=== PATIENT | female | born 1960 | race African-American/Black ===

== ENCOUNTER 2016-11-10 12:51 | Inpatient (IN) | payer OTHER ==
[2016-11-10 14:44] VITALS: BMI 27.6
--- NOTE | 2016-11-10 16:27 | HP ---
CIWA Score - CIWA Score Nausea/Vomitin Muscle Tremors: 3 Anxiety: 3 Agitation: 3 Paroxysmal Sweats: 2 Orientation: 0-Oriented Tacttile Disturbances: 2-Mild Itch/Numbness/Burn Auditory Disturbances: 2-Mild Harshness/Frighten Visual Disturbances: 2-Mild Sensitivity Headache: 2-Mild CIWA-Ar Total Score: 22 Admission ROS BHS - HPI Chief Complaint: I NEED HELP TO STOP DRINKING ALCOHOL,COCAINE CRACK Allergies/Adverse Reactions: Allergies Allergy/AdvReac Type Severity Reaction Status Date / Time No Known Allergies Allergy Verified 03/21/16 10:48 History of Present Illness: THIS 56 YEARS OLD FEMALE WITH ALCOHOL,CRACK AND COCAINE DEPENDENCE,WITHDRAWAL SYMPTOM,LAST DETOX [facility] 12/25 COMPLETED NICOTINE DEPENDENCE DEPRESSION INSOMNIA LONGEST PERIOD OF SOBRIETY 4 YEARS Exam Limitations: No Limitations - Ebola screening Have you traveled outside of the country in the last 21 days: No (N) Have you had contact with anyone from an Ebola affected area: No Have you been sick,other than usual withdrawal symptoms: No Do you have a fever: No - Review of Systems Constitutional: Chills, Loss of Appetite, Malaise, Night Sweats, Changes in sleep, Weakness EENT: reports: Nose Congestion Respiratory: reports: No Symptoms reported GI: reports: Diarrhea, Nausea, Vomiting, Abdominal cramping Musculoskeletal: reports: No Symptoms Reported Integumentary: reports: Dryness Neuro: reports: Headache, Tremors Endocrine: reports: No Symptoms Reported Hematology: reports: No Symptoms Reported Psychiatric: reports: Depressed Other Systems: Reviewed and Negative Patient History - Patient Medical History Hx Anemia: Yes Hx Asthma: No Hx Chronic Obstructive Pulmonary Disease (COPD): No Hx Cancer: Yes (breast ) Hx Cardiac Disorders: No Hx Congestive Heart Failure: No Hx Hypertension: No Hx Hypercholesterolemia: No Hx Pacemaker: No HX Cerebrovascular Accident: No Hx Seizures: Yes (Can't recall last episode said its a long time ago) Hx Dementia: No Hx Diabetes: No Hx Gastrointestinal Disorders: No Hx Liver Disease: No Hx Genitourinary Disorders: No Hx Sexually Transmitted Disorders: No Hx Renal Disease (ESRD): No Hx Thyroid Disease: No Hx Human Immunodeficiency Virus (HIV): No (LAST 2014 NEGATIVE) Hx Hepatitis C: No Hx Depression: Yes (NO MEDICATION) Hx Suicide Attempt: No Hx Bipolar Disorder: No Hx Schizophrenia: No Other Medical History: NO SUICIDAL,NO HOMICIDAL,BILATERAL MASTECTOMY IN 2013 POST CHEMO AND RADI - Patient Surgical History Past Surgical History: Yes Hx Breast Surgery: Yes (bilateral mastectomy in 2013 chemo/radiation) Hx Breast Biopsy: Yes (2012) Hx Abdominal Surgery: No Hx Appendectomy: No Hx Cholecystectomy: No Hx Genitourinary Surgery: No Hx Section: No Hx Orthopedic Surgery: No Other Surgical History: 2006-s/p tubal ligation Anesthesia Reaction: No - PPD History Previous Implant?: Yes Documented Results: Negative w/proof Date: 03/23/16 Results: 0mm PPD to be Administered?: No - Reproductive History Patient is a Female of Child Bearing Age (11 -55 yrs old): No Last Menstrual Period: 02/24/12 Patient : No - Smoking Cessation Smoking history: Current some day smoker Have you smoked in the past 12 months: Yes Aproximately how many cigarettes per day: 5 Hx Chewing Tobacco Use: No Initiated information on smoking cessation: Yes 'Breaking Loose' booklet given: 11/10/16 - Substance & Tx. History Hx Alcohol Use: Yes Hx Substance Use: Yes Substance Use Type: Alcohol, Cocaine Hx Substance Use Treatment: Yes ([facility]) - Substances Abused Alcohol Route: Oral Frequency: Daily Amount used: 1PINT OF BARAK/2 OF 40 OZS OF BEER Age of first use: 19 Date of Last Use: 11/09/16 Cocaine Route: Smoking Frequency: 1-2 times per week Amount used: 100$ Age of first use: 26 Date of Last Use: 11/09/16 Family Disease History - Family Disease History Family Disease History: Other: Father (renal disease ,dm substance), Mother ( etoh,) Admission Physical Exam [facility] - Vital Signs Vital Signs: Vital Signs - 24 hr 11/10/16 14:39 Temperature 95.8 F L Pulse Rate 90 Respiratory 18 Rate Blood Pressure 146/86 - Physical General Appearance: Yes: Moderate Distress, Tremorous, Irritable, Sweating, Anxious HEENTM: Yes: Nasal Congestion Respiratory: Yes: Lungs Clear Neck: Yes: Within Normal Limits Breast: Yes: Surgical Scar Cardiology: Yes: Within Normal Limits, Regular Rhythm, Regular Rate, S1, S2 Abdominal: Yes: Within Normal Limits, Normal Bowel Sounds, Non Tender, Flat, Soft Genitourinary: Yes: Within Normal Limits Back: Yes: Muscle Spasm Musculoskeletal: Yes: Back pain, Muscle Pain Extremities: Yes: Tremors (S/P BILATERL MASTEDTOMY) Neurological: Yes: product transfer pumper II-XII NML intact, Fully Oriented, Alert, Motor Strength 5/5, Normal Mood/Affect Integumentary: Yes: Dry Lymphatic: Yes: Within Normal Limits - Diagnostic (1) Alcohol dependence with uncomplicated withdrawal Current Visit: Yes Status: Acute (2) Syncope Current Visit: No Status: Acute (3) Cocaine dependence Current Visit: Yes Status: Acute (4) Insomnia Current Visit: Yes Status: Acute (5) Weight loss Current Visit: Yes Status: Acute (6) Schizoaffective disorder Current Visit: No Status: Suspected (7) History of cancer of left breast Current Visit: Yes Status: Acute (8) History of cancer of right breast Current Visit: Yes Status: Acute (9) S/P mastectomy, bilateral Current Visit: Yes Status: Acute Cleared for Admission [facility] - Detox or Rehab [facility] Level of Care: Medically Managed Detox Regimen/Protocol: Librium S Breath Alcohol Content Breath Alcohol Content: 0.144 Urine Pregancy Test - Result Urine Test Results: Negative- NO Line Present Urine Drug Screen - Results Drug Screen Negative: No Urine Drug Screen Results: BRIGETTE-Cocaine
[2016-11-10] MEDS ORDERED: MENTHOL/PHENOL 1 EACH UD MM PRN (16:44)
[2016-11-10] MEDS ORDERED: diphenhydrAMINE HCL 50 MG CAPSULE PO PRN (16:44)
[2016-11-10] MEDS ORDERED: ACETAMINOPHEN 325 MG TABLET (FP) PO PRN (16:44)
[2016-11-10] MEDS ORDERED: MAG HYDROX/AL HYDROX/SIMETH 30 ML UNIT-DOSE CUP PO PRN (16:44)
[2016-11-10] MEDS ORDERED: chlordiazePOXIDE HCL 25 MG CAPSULE PO PRN (16:44)
[2016-11-10] MEDS ORDERED: P-EPHED 60MG/TRIPROLIDI 2.5MG TABLET PO PRN (16:44)
[2016-11-10] MEDS ORDERED: MAGNESIUM CITRATE 300 ML BOTTLE PO PRN (16:44)
[2016-11-10] MEDS ORDERED: guaiFENesin/D-METHORPHAN HB 10 ML UNIT-DOSE CUPS PO PRN (16:44)
[2016-11-10] MEDS ORDERED: MAGNESIUM HYDROX 2400MG/30ML ORAL SUSPENSION 30 ML CUP PO PRN (16:44)
[2016-11-10] MEDS ORDERED: LOPERAMIDE HCL 2 MG CAPSULE PO PRN (16:44)
[2016-11-10] MEDS ORDERED: chlordiazePOXIDE HCL 25 MG CAPSULE PO ONE (17:00)
[2016-11-10] MEDS: chlordiazePOXIDE HCL 25 MG CAPSULE PO SCH (23:14)
[2016-11-10] MEDS: THIAMINE HCL 100 MG TABLET (FP) PO SCH (23:15)
[2016-11-11] MEDS: chlordiazePOXIDE HCL 25 MG CAPSULE PO SCH ×4 (06:03→22:25)
[2016-11-11] MEDS: PRENATAL VITAMINS W/ FOLIC ACID TABLET (FP) PO SCH (10:30)
[2016-11-11] MEDS: IBUPROFEN 400 MG TABLET (FP) PO PRN ×2 (10:32→22:46)
[2016-11-11 11:06] LABS: MCH 29.8 pg (25.7-33.7); MCHC 32.5 g/dl (32.0-36.0); MEAN CELL VOLUME 91.6 fl (80-96); MEAN PLT VOLUME 7.7 fl (7.5-11.1); PLATELET COUNT 411 K/MM3 (134-434); RDW 14.1 % (11.6-15.6)
--- NOTE | 2016-11-11 11:16 | PN ---
S CIWA - CIWA Score Nausea/Vomitin Muscle Tremors: 3 Anxiety: 3 Agitation: 3 Paroxysmal Sweats: 3 Orientation: 0-Oriented Tacttile Disturbances: 1-Very Mild Itch/Numbness Auditory Disturbances: 0-None Visual Disturbances: 0-None Headache: 0-None Present CIWA-Ar Total Score: 15 BHS Progress Note (SOAP) Subjective: INTERRUPTED SLEEP, SWEATS, Objective: 11/11/16 11:13 Vital Signs Temperature 97 F L 11/11/16 10:29 Pulse Rate 78 11/11/16 10:29 Respiratory Rate 16 11/11/16 10:29 Blood Pressure 127/68 11/11/16 10:29 O2 Sat by Pulse Oximetry (%) Laboratory Tests 11/11/16 06:30 WBC 12.0 H D RBC 3.96 Hgb 11.8 Hct 36.3 MCV 91.6 MCHC 32.5 RDW 14.1 Plt Count 411 MPV 7.7 PENDING LABS PT AOX3 READING IN BED IN NAD Assessment: 11/11/16 11:14 WITHDRAWAL SX;S Plan: CONT. DETOX INCREASE FLUIDS F/UP PENDING LABS
[2016-11-11 11:24] LABS: ALBUMIN 3.1 g/dl (3.4-5.0); ALK PHOS 77 U/L (45-117); ANION GAP 6 (8-16); BILIRUBIN,TOTAL 0.4 mg/dL (0.2-1.0); CO2 28 mmol/L (21-32); CREATININE 0.5 mg/dL (0.55-1.02); GLUCOSE,RANDOM 77 mg/dL (74-106); SGOT/AST 13 U/L (15-37); SGPT/ALT 21 U/L (12-78); TOT PROT 5.7 g/dl (6.4-8.2)
[2016-11-11 11:44] LABS: HIV 1 & 2 AB NEGATIVE; HIV 1 AGp24 NEGATIVE
--- NOTE | 2016-11-11 13:11 | PN ---
S Progress Note Note: Psychiatry Attending's note: Patient refused psychiatric evaluation. Nursing staff is made aware.
[2016-11-11] MEDS: THIAMINE HCL 100 MG TABLET (FP) PO SCH (22:26)
[2016-11-12] MEDS: chlordiazePOXIDE HCL 25 MG CAPSULE PO SCH ×3 (05:25→17:29)
--- NOTE | 2016-11-12 10:39 | CONSULT ---
[facility] Psychiatric Consult - Data Date of interview: 11/12/16 Admission source: [facility] Identifying data: Readmission to [facility] for this 56 y/o AA female seeking detox treatment for alcohol dependence.Patient is ,a mother of three, undomiciled,unemployed and supported on SSI benefits. Substance Abuse History: - Smoking Cessation. Smoking history: Current some day smoker. Have you smoked in the past 12 months: Yes. Aproximately how many cigarettes per day: 5. Hx Chewing Tobacco Use: No. Initiated information on smoking cessation: Yes. 'Breaking Loose' booklet given: 11/10/16. - Substance & Tx. History. Hx Alcohol Use: Yes. Hx Substance Use: Yes. Substance Use Type : Alcohol, Cocaine. Hx Substance Use Treatment: Yes ([facility]). - Substances Abused. Alcohol. Route: Oral. Frequency: Daily. Amount used: 1PINT OF BARAK/2 OF 40 OZS OF BEER. Age of first use: 19. Date of Last Use: 11/09/16. Cocaine. Route: Smoking. Frequency: 1-2 times per week. Amount used: 100$. Age of first use: 26. Date of Last Use: 11/09/16. Confirmed by patient. Medical History: Significant for a history of bilateral mastectomy/radiation + chemotherapy (breast cancer) in 2012,seizures (head trauma),anemia and tubal ligation (2006). Psychiatric History: No changes in personal history since encounter of 04/2016. As follows :extensive history of mental illness.Onset:age 19.Diagnosed with Schizoaffective Disorder,as per self-report.History of 9-10 psychiatric hospitalizations.Ms Yuan is known to [facility] and [facility].She reports that she gets outpatient psychiatric services at a mental clinic in [facility] (name not recalled).Medications reported in this interview :risperdal 3 mg po hs ++ cogentin 1 mg/hs + benadryl 50 mg/hs.Patient requests continuity of this regimen during this hospital course.No information about the date of most recent medication intake.No reported history of suicide attempts. Physical/Sexual Abuse/Trauma History: Patient denies. Additional Comment: Urine Drug Screen Results: BRIGETTE-Cocaine.Noted. Mental Status Exam - Mental Status Exam Alert and Oriented to: Time, Place, Person Cognitive Function: Good Patient Appearance: Well Groomed (short stature,obese) Mood: Nervous, Anxious, Hopeful Affect: Mood Congruent Patient Behavior: Fatigued, Talkative, Cooperative Speech Pattern: Clear Voice Loudness: Normal Thought Process: Goal Oriented Thought Disorder: Not Present Hallucinations: Denies Suicidal Ideation: Denies Homicidal Ideation: Denies Insight/Judgement: Poor Sleep: Well Appetite: Good Muscle strength/Tone: Normal Gait/Station: Normal Psychiatric Findings - Problem List ([place] 1, 2,3) (1) Alcohol dependence with uncomplicated withdrawal Current Visit: Yes Status: Acute (2) Cocaine dependence Current Visit: Yes Status: Acute (3) Nicotine dependence Current Visit: Yes Status: Acute Qualifiers: (4) Schizoaffective disorder Current Visit: Yes Status: Chronic Comment: By history. (5) History of cancer of left breast Current Visit: No Status: Chronic (6) History of cancer of right breast Current Visit: No Status: Chronic (7) S/P mastectomy, bilateral Current Visit: No Status: Chronic (8) Insomnia Current Visit: Yes Status: Chronic - Initial Treatment Plan Initial Treatment Plan: Psychoeducation.Detoxification.Medications :risperdal 2 mg po hs + cogentin 1 mg po hs + benadryl 50 mg po hs prn.Side effects/benefits discussed with patient.Patient agrees with this careplan.
[2016-11-12] MEDS: PRENATAL VITAMINS W/ FOLIC ACID TABLET (FP) PO SCH (10:46)
[2016-11-12] MEDS: IBUPROFEN 400 MG TABLET (FP) PO PRN (10:48)
--- NOTE | 2016-11-12 11:19 | PN ---
S CIWA - CIWA Score Nausea/Vomitin-No Nausea/No Vomiting Muscle Tremors: 4-Moderate,w/Arms Extend Anxiety: 3 Agitation: 4-Moderately Restless Paroxysmal Sweats: 3 Orientation: 0-Oriented Tacttile Disturbances: 0-None Auditory Disturbances: 0-None Visual Disturbances: 0-None Headache: 0-None Present CIWA-Ar Total Score: 14 BHS Progress Note (SOAP) Subjective: minimal left shoulder pain d/t fall experienced a fx before arriving to detox sweats irritable would like to see psych now Objective: 11/12/16 11:18 Vital Signs Temperature 97.5 F L 11/12/16 06:28 Pulse Rate 77 11/12/16 06:28 Respiratory Rate 18 11/12/16 06:28 Blood Pressure 142/88 11/12/16 06:28 O2 Sat by Pulse Oximetry (%) Laboratory Tests 11/11/16 11/11/16 11/11/16 06:30 06:30 06:30 WBC 12.0 H D RBC 3.96 Hgb 11.8 Hct 36.3 MCV 91.6 MCHC 32.5 RDW 14.1 Plt Count 411 MPV 7.7 Sodium 140 Potassium 4.1 Chloride 106 Carbon Dioxide 28 Anion Gap 6 L BUN 13 Creatinine 0.5 L D Creat Clearance w eGFR > 60 Random Glucose 77 Calcium 9.0 Total Bilirubin 0.4 D AST 13 L ALT 21 D Alkaline Phosphatase 77 Total Protein 5.7 L Albumin 3.1 L RPR Titer Nonreactive HIV 1&2 Antibody Screen HIV P24 Antigen 11/11/16 06:30 WBC RBC Hgb Hct MCV MCHC RDW Plt Count MPV Sodium Potassium Chloride Carbon Dioxide Anion Gap BUN Creatinine Creat Clearance w eGFR Random Glucose Calcium Total Bilirubin AST ALT Alkaline Phosphatase Total Protein Albumin RPR Titer HIV 1&2 Antibody Screen Negative HIV P24 Antigen Negative awake/alert ambulating no acute distress will order sling for pt Assessment: 11/12/16 11:18 withdrawal sx Plan: continue detox increase fluids sling ordered psych ordered for revisit motrin 600 prn
[2016-11-12 11:23] LABS: URINE APPEARANCE CLEAR; URINE BILIRUBIN NEGATIVE (NEGATIVE); URINE BLOOD NEGATIVE (NEGATIVE); URINE COLOR STRAW; URINE GLUCOSE (UA) NEGATIVE (NEGATIVE); URINE KETONE NEGATIVE (NEGATIVE); URINE LEUK ESTERASE NEGATIVE (NEGATIVE); URINE NITRITE NEGATIVE (NEGATIVE); URINE PROTEIN NEGATIVE (NEGATIVE); URINE UROBILINOGEN NEGATIVE E.U./dl (0.2-1.0)
[2016-11-12] MEDS: THIAMINE HCL 100 MG TABLET (FP) PO SCH (22:30)
[2016-11-12] MEDS: BENZTROPINE MESYLATE 1 MG TABLET (FP) PO SCH (22:30)
[2016-11-12] MEDS: chlordiazePOXIDE 5 MG CAPSULE PO SCH (22:30)
[2016-11-12] MEDS: risperiDONE 2 MG TABLET PO SCH (22:30)
[2016-11-13] MEDS: IBUPROFEN 600 MG TABLET (FP) PO PRN ×2 (04:39→22:49)
[2016-11-13] MEDS: chlordiazePOXIDE 5 MG CAPSULE PO SCH ×3 (04:41→17:35)
--- NOTE | 2016-11-13 10:29 | PN ---
BHS Progress Note (SOAP) Subjective: interrupted sleep, sweats , left arm sling , pt feel on knee while waiting for meds Objective: 11/13/16 10:25 Vital Signs Temperature 96.3 F L 11/13/16 09:59 Pulse Rate 79 11/13/16 09:59 Respiratory Rate 20 11/13/16 09:59 Blood Pressure 126/67 11/13/16 09:59 O2 Sat by Pulse Oximetry (%) Vital Signs Temperature 96.3 F L 11/13/16 09:59 Pulse Rate 79 11/13/16 09:59 Respiratory Rate 20 11/13/16 09:59 Blood Pressure 126/67 11/13/16 09:59 O2 Sat by Pulse Oximetry (%) Laboratory Tests 11/11/16 11/11/16 11/11/16 06:30 06:30 06:30 WBC 12.0 H D RBC 3.96 Hgb 11.8 Hct 36.3 MCV 91.6 MCHC 32.5 RDW 14.1 Plt Count 411 MPV 7.7 Sodium 140 Potassium 4.1 Chloride 106 Carbon Dioxide 28 Anion Gap 6 L BUN 13 Creatinine 0.5 L D Creat Clearance w eGFR > 60 Random Glucose 77 Calcium 9.0 Total Bilirubin 0.4 D AST 13 L ALT 21 D Alkaline Phosphatase 77 Total Protein 5.7 L Albumin 3.1 L Urine Color Urine Appearance Urine pH Ur Specific [place] Urine Protein Urine Glucose (UA) Urine Ketones Urine Blood Urine Nitrite Urine Bilirubin Urine Urobilinogen Ur Leukocyte Esterase RPR Titer Nonreactive HIV 1&2 Antibody Screen HIV P24 Antigen 11/11/16 11/12/16 06:30 07:00 WBC RBC Hgb Hct MCV MCHC RDW Plt Count MPV Sodium Potassium Chloride Carbon Dioxide Anion Gap BUN Creatinine Creat Clearance w eGFR Random Glucose Calcium Total Bilirubin AST ALT Alkaline Phosphatase Total Protein Albumin Urine Color Straw Urine Appearance Clear Urine pH 5.0 D Ur Specific [place] 1.006 Urine Protein Negative Urine Glucose (UA) Negative Urine Ketones Negative Urine Blood Negative Urine Nitrite Negative Urine Bilirubin Negative Urine Urobilinogen Negative Ur Leukocyte Esterase Negative RPR Titer HIV 1&2 Antibody Screen Negative HIV P24 Antigen Negative pt aox3 in nad with left arm sling in place no cuts, bruises or scraps neuro intact 11/13/16 10:26 Assessment: 11/13/16 10:27 withdrawl sx's s/p fall Plan: cont. on detox increase fluids fall protocol #2 d/c in am if all is well
[2016-11-13] MEDS: PRENATAL VITAMINS W/ FOLIC ACID TABLET (FP) PO SCH (11:47)
[2016-11-13] MEDS: hydrOXYzine PAMOATE 50 MG CAPSULE (FP) PO PRN (15:45)
[2016-11-13] MEDS: chlordiazePOXIDE HCL 10 MG CAPSULE PO SCH (22:49)
[2016-11-13] MEDS: THIAMINE HCL 100 MG TABLET (FP) PO SCH (22:49)
[2016-11-13] MEDS: risperiDONE 2 MG TABLET PO SCH (22:49)
[2016-11-13] MEDS: BENZTROPINE MESYLATE 1 MG TABLET (FP) PO SCH (22:49)
[2016-11-14] MEDS: chlordiazePOXIDE HCL 10 MG CAPSULE PO SCH (05:24)
[2016-11-14] MEDS: IBUPROFEN 600 MG TABLET (FP) PO PRN (05:25)
--- NOTE | 2016-11-14 08:53 | DS ---
[facility] Detox Discharge Summary Admission Date: 11/10/16 Discharge Date: 11/14/16 - History Present History: Alcohol Dependence, Cocaine Dependence - Physical Exam Results Vital Signs: Vital Signs Temperature 97.7 F 11/14/16 06:25 Pulse Rate 76 11/14/16 06:25 Respiratory Rate 18 11/14/16 06:25 Blood Pressure 128/79 11/14/16 06:25 O2 Sat by Pulse Oximetry (%) - Treatment Hospital Course: Detox Protocol Followed, Detoxed Safely, Responded well, Discharged Condition Good, Rehab Referral Accepted - Medication Discharge Medications: Ambulatory Orders Diphenhydramine [Benadryl Capsule -] 100 mg PO HS PRN #30 capsule 04/09/16 Risperidone [Risperdal] 2 mg PO HS 11/10/16 Benztropine Mesylate [Cogentin -] 1 mg PO HS #30 tablet 11/12/16 Risperidone [Risperdal] 2 mg PO HS #30 tablet 11/12/16 - Diagnosis (1) Alcohol dependence with uncomplicated withdrawal Current Visit: Yes Status: Chronic (2) Cocaine dependence Current Visit: Yes Status: Chronic Qualifiers: Substance use status: uncomplicated Qualified Code(s): F14.20 - Cocaine dependence, uncomplicated (3) Nicotine dependence Current Visit: Yes Status: Chronic Qualifiers: Nicotine product type: cigarettes Substance use status: uncomplicated Qualified Code(s): F17.210 - Nicotine dependence, cigarettes, uncomplicated (4) Weight loss Current Visit: Yes Status: Suspected (5) Insomnia Current Visit: Yes Status: Chronic (6) Schizoaffective disorder Current Visit: Yes Status: Chronic (7) Mental retardation, 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) Current Visit: Yes Status: Chronic (8) Status post mastectomy Current Visit: No Status: Chronic (9) Syncope Current Visit: Yes Status: Suspected (10) nicotine dep Current Visit: No Status: Chronic (11) s/p portacath Current Visit: No Status: Chronic (12) History of cancer of left breast Current Visit: No Status: Chronic (13) History of cancer of right breast Current Visit: No Status: Chronic (14) Portacath in place Current Visit: No Status: Chronic (15) S/P mastectomy, bilateral Current Visit: No Status: Chronic (16) Schizoaffective disorder, depressive type Current Visit: No Status: Suspected - AMA Did Patient Leave Against Medical Advice: No
[2016-11-14 10:30] VITALS: BP 135/73; PULSE 77; TEMP 98.6
[2016-11-14] MEDS: PRENATAL VITAMINS W/ FOLIC ACID TABLET (FP) PO SCH (10:42)
[2016-11-14] MEDS: hydrOXYzine PAMOATE 50 MG CAPSULE (FP) PO PRN (10:43)
== END 2016-11-14 10:53 | disposition other institution (70) | DRG 774 ==
LOC: YASAS 12:51 → Y6N 16:50
PROVIDERS: ADMIT Internal Medicine; ATTEND Internal Medicine
PROC: HZ2ZZZZ Detoxification Services for Substance Abuse Treatment (ICD-10-PCS; principal; 2016-11-10)
DX: F10.230 Alcohol dependence with withdrawal, uncomplicated (principal); F14.20 Cocaine dependence, uncomplicated; F17.210 Nicotine dependence, cigarettes, uncomplicated; F25.1 Schizoaffective disorder, depressive type; G47.00 Insomnia, unspecified; F70 Mild intellectual disabilities; M25.512 Pain in left shoulder; Z85.3 Personal history of malignant neoplasm of breast; Z90.13 Acquired absence of bilateral breasts and nipples; Z87.898 Personal history of other specified conditions; Z86.79 Personal history of other diseases of the circulatory system; Z95.9 Presence of cardiac and vascular implant and graft, unspecified; Z86.69 Personal history of other diseases of the nervous system and sense organs; Z86.2 Personal history of diseases of the blood and blood-forming organs and certain disorders involving the immune mechanism; Z92.21 Personal history of antineoplastic chemotherapy
CPT/HCPCS: 36415; 80053; 81003; 85027; 86593; 87389; 93005; 93010

== ENCOUNTER 2016-11-14 11:04 | Inpatient (IN) | payer OTHER ==
--- NOTE | 2016-11-14 12:42 | HP ---
Psychiatrist Admission - Data Date of interview: 11/14/16 Admission source: [address] [place] [address] Identifying data: This is the second admission to [address] [place] [address] for this 56 years old AA female mother of 3 undomociled, supported by [facility]. Medical History: H/O Bilateral masectomy(breast acncer),H/O Anemia,H/O Head trauma with seizures,brain damage. Psychiatric History: LOng and extensive psychiatric history started back in 1978 after first nervious breakdown.Patient was severe depressed with auditory hallucinations,paranoid behavior.She was dx with Schizoaffective disorder and placed on antipsychotics.Patient reports 10 more psychiatric admissions.most recent was in 2014 to [facility].PAtient is non compliant with her follow up appointments due to cognitive impairment(mild mental retardation, mental illness,drug use).Currently she is under care of psychiatrist at [facility] in [facility].Medicatios:Risperidone 3 mg po hs,Cogentin 1 mg po hs and Benadryl 50 mg po hs. Physical/Sexual Abuse/Trauma History: denies Allergies/Adverse Reactions: Allergies Allergy/AdvReac Type Severity Reaction Status Date / Time No Known Allergies Allergy Verified 11/10/16 17:12 Date of last physical exam: 11/10/16 Concur with the findings of this exam: Yes - Substance Abuse/Tx History Hx Alcohol Use: Yes (reports drinking ) Hx Substance Use: Yes (cocaine/crack since 24 yo) Substance Use Type: Alcohol, Cocaine Hx Substance Use Treatment: Yes (completed [facility] 28 days program a few years ago) - Admission Criteria Previous failed treatment: Yes Poor recovery environment: Yes Comorbidities: Yes Lacks judgement: Yes Mental Status Exam - Mental Status Exam Alert and Oriented to: Time, Place, Person Cognitive Function: Impaired Patient Appearance: Unkempt Mood: Sad, Anxious Affect: Mood Congruent Patient Behavior: Cooperative Speech Pattern: Clear Voice Loudness: Normal Thought Process: Goal Oriented Thought Disorder: Being Controlled Hallucinations: Denies Suicidal Ideation: Denies Homicidal Ideation: Denies Insight/Judgement: Fair Sleep: Fair Appetite: Good Muscle strength/Tone: Normal Gait/Station: Normal Psychiatric Findings - Problem List ([place] 1, 2,3) (1) Cocaine dependence Current Visit: Yes Status: Chronic Qualifiers: (2) Mental retardation, 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 Will monitor progress.
[2016-11-14] MEDS ORDERED: diphenhydrAMINE HCL 50 MG CAPSULE PO PRN (13:43)
[2016-11-14] MEDS ORDERED: LOPERAMIDE HCL 2 MG CAPSULE PO PRN (13:43)
[2016-11-14] MEDS ORDERED: MAG HYDROX/AL HYDROX/SIMETH 30 ML UNIT-DOSE CUP PO PRN (13:43)
[2016-11-14] MEDS ORDERED: guaiFENesin/D-METHORPHAN HB 10 ML UNIT-DOSE CUPS PO PRN (13:43)
[2016-11-14] MEDS ORDERED: MAGNESIUM HYDROX 2400MG/30ML ORAL SUSPENSION 30 ML CUP PO PRN (13:43)
[2016-11-14] MEDS ORDERED: MAGNESIUM CITRATE 300 ML BOTTLE PO PRN (13:43)
[2016-11-14] MEDS ORDERED: P-EPHED 60MG/TRIPROLIDI 2.5MG TABLET PO PRN (13:43)
[2016-11-14] MEDS ORDERED: MENTHOL/PHENOL 1 EACH UD MM PRN (13:43)
--- NOTE | 2016-11-14 13:43 | HP ---
[facility] Rehab Assess/Revision - Admission History Admitted to Rehab from: [facility] Date of Admission to Rehab: 11/14/16 - Vital signs Vital Signs: Last Vital Signs Temp Pulse Resp BP Pulse Ox 97.4 F L 72 18 150/83 11/14/16 12:45 11/14/16 12:45 11/14/16 12:45 11/14/16 12:45 - Findings Detox History & Physical reviewed: Yes Concur with findings: Yes
[2016-11-14] MEDS: BENZTROPINE MESYLATE 1 MG TABLET (FP) PO SCH (21:28)
[2016-11-14] MEDS: diphenhydrAMINE HCL 50 MG CAPSULE PO SCH (21:28)
[2016-11-14] MEDS: THIAMINE HCL 100 MG TABLET (FP) PO SCH (21:29)
[2016-11-14] MEDS: risperiDONE 3 MG TABLET PO SCH (21:29)
[2016-11-15] MEDS: IBUPROFEN 400 MG TABLET (FP) PO PRN ×2 (04:27→15:30)
[2016-11-15] MEDS: PRENATAL VITAMINS W/ FOLIC ACID TABLET (FP) PO SCH (09:57)
[2016-11-15] MEDS ORDERED: INFLUENZA VACCINE 45 MCG/0.5 ML (MDV 16-17) IM ONE (12:00)
[2016-11-15] MEDS: risperiDONE 3 MG TABLET PO SCH (21:25)
[2016-11-15] MEDS: THIAMINE HCL 100 MG TABLET (FP) PO SCH (21:25)
[2016-11-15] MEDS: diphenhydrAMINE HCL 50 MG CAPSULE PO SCH (21:25)
[2016-11-15] MEDS: BENZTROPINE MESYLATE 1 MG TABLET (FP) PO SCH (21:25)
[2016-11-16] MEDS: PRENATAL VITAMINS W/ FOLIC ACID TABLET (FP) PO SCH (09:55)
[2016-11-16] MEDS: IBUPROFEN 400 MG TABLET (FP) PO PRN (09:58)
[2016-11-16] MEDS: ACETAMINOPHEN 325 MG TABLET (FP) PO PRN ×2 (13:58→21:12)
[2016-11-16] MEDS: BENZTROPINE MESYLATE 1 MG TABLET (FP) PO SCH (21:11)
[2016-11-16] MEDS: risperiDONE 3 MG TABLET PO SCH (21:11)
[2016-11-16] MEDS: THIAMINE HCL 100 MG TABLET (FP) PO SCH (21:11)
[2016-11-16] MEDS: diphenhydrAMINE HCL 50 MG CAPSULE PO SCH (21:13)
[2016-11-17] MEDS: ACETAMINOPHEN 325 MG TABLET (FP) PO PRN ×2 (07:01→12:50)
[2016-11-17] MEDS: PRENATAL VITAMINS W/ FOLIC ACID TABLET (FP) PO SCH (10:00)
[2016-11-17] MEDS: THIAMINE HCL 100 MG TABLET (FP) PO SCH (21:05)
[2016-11-17] MEDS: risperiDONE 3 MG TABLET PO SCH (21:05)
[2016-11-17] MEDS: BENZTROPINE MESYLATE 1 MG TABLET (FP) PO SCH (21:05)
[2016-11-17] MEDS: diphenhydrAMINE HCL 50 MG CAPSULE PO SCH (21:05)
[2016-11-18] MEDS: ACETAMINOPHEN 325 MG TABLET (FP) PO PRN ×2 (06:06→21:10)
[2016-11-18] MEDS: PRENATAL VITAMINS W/ FOLIC ACID TABLET (FP) PO SCH (09:52)
[2016-11-18] MEDS: BENZTROPINE MESYLATE 1 MG TABLET (FP) PO SCH (21:09)
[2016-11-18] MEDS: diphenhydrAMINE HCL 50 MG CAPSULE PO SCH (21:09)
[2016-11-18] MEDS: risperiDONE 3 MG TABLET PO SCH (21:09)
[2016-11-18] MEDS: THIAMINE HCL 100 MG TABLET (FP) PO SCH (21:09)
[2016-11-19] MEDS: IBUPROFEN 400 MG TABLET (FP) PO PRN (07:32)
[2016-11-19] MEDS: PRENATAL VITAMINS W/ FOLIC ACID TABLET (FP) PO SCH (09:52)
[2016-11-19] MEDS: ACETAMINOPHEN 325 MG TABLET (FP) PO PRN ×2 (14:24→21:11)
[2016-11-19] MEDS: diphenhydrAMINE HCL 50 MG CAPSULE PO SCH (21:08)
[2016-11-19] MEDS: BENZTROPINE MESYLATE 1 MG TABLET (FP) PO SCH (21:08)
[2016-11-19] MEDS: risperiDONE 3 MG TABLET PO SCH (21:08)
[2016-11-19] MEDS: THIAMINE HCL 100 MG TABLET (FP) PO SCH (21:09)
[2016-11-20] MEDS: PRENATAL VITAMINS W/ FOLIC ACID TABLET (FP) PO SCH (09:47)
[2016-11-20] MEDS: IBUPROFEN 400 MG TABLET (FP) PO PRN (09:49)
[2016-11-20] MEDS: ACETAMINOPHEN 325 MG TABLET (FP) PO PRN (13:19)
[2016-11-20] MEDS: THIAMINE HCL 100 MG TABLET (FP) PO SCH (21:45)
[2016-11-20] MEDS: BENZTROPINE MESYLATE 1 MG TABLET (FP) PO SCH (21:45)
[2016-11-20] MEDS: diphenhydrAMINE HCL 50 MG CAPSULE PO SCH (21:45)
[2016-11-20] MEDS: risperiDONE 3 MG TABLET PO SCH (21:45)
[2016-11-21] MEDS: PRENATAL VITAMINS W/ FOLIC ACID TABLET (FP) PO SCH (10:05)
[2016-11-21] MEDS: ACETAMINOPHEN 325 MG TABLET (FP) PO PRN ×2 (12:29→21:16)
--- NOTE | 2016-11-21 15:43 | PN ---
Psychiatric Progress Note Vital Signs: Vital Signs Period Temp Pulse Resp BP Sys/Daigle Pulse Ox Last 24 Hr 98.0 F 74 18-18 125/80 Date of Session: 11/21/16 Chief Complaint:: Sathish not sleeping well." HPI: PAtient addressed Alcohol and Cocaine dependence comorbid with Schizoaffective disorder,Mild Mental retardation. ROS: H/O Bilateral Breast Cancer. Current Medications: Active Medications Generic Name Dose Route Start Last Admin Trade Name Freq PRN Reason Stop Dose Admin Acetaminophen 650 mg 11/14/16 13:43 11/21/16 12:29 Tylenol - PO 650 mg Q4H PRN Administration FEVER OR PAIN Al Hydroxide/Mg Hydroxide 30 ml 11/14/16 13:43 11/16/16 14:47 Mylanta Oral Suspension - PO 30 ml Q6H PRN Administration DYSPEPSIA Benztropine Mesylate 1 mg 11/14/16 22:00 11/20/16 21:45 Cogentin - PO 1 mg HS HOANG Administration Diphenhydramine HCl 100 mg 11/21/16 22:00 Benadryl - PO HS HOANG Eucalyptus/Menthol/Phenol/Sorbitol 1 each 11/14/16 13:43 Cepastat Lozenge - MM Q4H PRN SORE THROAT Guaifenesin 10 ml 11/14/16 13:43 Robitussin Dm - PO Q6H PRN COUGH Ibuprofen 400 mg 11/14/16 13:43 11/20/16 09:49 Motrin - PO 400 mg Q6H PRN Administration PAIN Loperamide HCl 4 mg 11/14/16 13:43 Imodium - PO Q6H PRN DIARRHEA Magnesium Hydroxide 30 ml 11/14/16 13:43 Milk Of Magnesia - PO DAILY PRN CONSTIPATION Multivit/Folic Acid/Iron 1 tab 11/15/16 10:00 11/21/16 10:05 Vitamins (Sjr) - PO Not Given DAILY HOANG Pseudoephedrine/Triprolidine 1 combo 11/14/16 13:43 Actifed - PO TID PRN NASAL CONGESTION Risperidone 3 mg 11/14/16 22:00 11/20/16 21:45 Risperdal - PO 3 mg HS HOANG Administration Thiamine HCl 100 mg 11/14/16 22:00 11/20/16 21:45 Vitamin B1 - PO 100 mg HS HOANG Administration Current Side Effect: No Lab tests ordered: No Lab tests reviewed: Yes Provider note:: Patient was evaluated todsay.Chart has been revuewed and treatment plan has been discussed with the patient .Patient addressed sleeping difficulties and anxiety,drowsiness next day after lack of sleep.Properties of antipsychotics has been discussed as well as medications for insomnia. Benadryl 50 mg po hs will be adjusted to 100 mg po hs(according to the patient she used to take 100 mg po hs in the past with good response). Total face to face time:: 30 Mental Status Exam - Mental Status Exam Alert and Oriented to: Time, Place, Person Cognitive Function: Grossly Intact Patient Appearance: Unkempt Mood: Nervous Affect: Mood Congruent, Labile Patient Behavior: Fatigued, Cooperative Speech Pattern: Clear Voice Loudness: Normal Thought Process: Goal Oriented Thought Disorder: Being Controlled Hallucinations: Denies Suicidal Ideation: Denies Homicidal Ideation: Denies Insight/Judgement: Impaired Sleep: Difficulty falling asleep Appetite: Good Muscle strength/Tone: Normal Gait/Station: Normal Psychiatric Treatment Plan - Problem List (1) Cocaine dependence Current Visit: Yes Qualifiers: (2) Mental retardation, 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
[2016-11-21] MEDS: BENZTROPINE MESYLATE 1 MG TABLET (FP) PO SCH (21:17)
[2016-11-21] MEDS: diphenhydrAMINE HCL 50 MG CAPSULE PO SCH (21:17)
[2016-11-21] MEDS: risperiDONE 3 MG TABLET PO SCH (21:17)
[2016-11-21] MEDS: THIAMINE HCL 100 MG TABLET (FP) PO SCH (21:18)
[2016-11-22] MEDS: PRENATAL VITAMINS W/ FOLIC ACID TABLET (FP) PO SCH ×2 (09:47→10:14)
[2016-11-22] MEDS: IBUPROFEN 400 MG TABLET (FP) PO PRN ×2 (10:13→21:11)
[2016-11-22] MEDS: THIAMINE HCL 100 MG TABLET (FP) PO SCH (21:09)
[2016-11-22] MEDS: diphenhydrAMINE HCL 50 MG CAPSULE PO SCH (21:10)
[2016-11-22] MEDS: risperiDONE 3 MG TABLET PO SCH (21:10)
[2016-11-22] MEDS: BENZTROPINE MESYLATE 1 MG TABLET (FP) PO SCH (21:10)
[2016-11-23] MEDS: PRENATAL VITAMINS W/ FOLIC ACID TABLET (FP) PO SCH (09:52)
[2016-11-23] MEDS: IBUPROFEN 400 MG TABLET (FP) PO PRN (16:31)
[2016-11-23] MEDS: THIAMINE HCL 100 MG TABLET (FP) PO SCH (21:06)
[2016-11-23] MEDS: BENZTROPINE MESYLATE 1 MG TABLET (FP) PO SCH (21:06)
[2016-11-23] MEDS: diphenhydrAMINE HCL 50 MG CAPSULE PO SCH (21:06)
[2016-11-23] MEDS: risperiDONE 3 MG TABLET PO SCH (21:06)
[2016-11-24] MEDS: PRENATAL VITAMINS W/ FOLIC ACID TABLET (FP) PO SCH (09:58)
[2016-11-24] MEDS: IBUPROFEN 400 MG TABLET (FP) PO PRN ×2 (13:26→21:18)
[2016-11-24] MEDS: THIAMINE HCL 100 MG TABLET (FP) PO SCH (21:17)
[2016-11-24] MEDS: risperiDONE 3 MG TABLET PO SCH (21:17)
[2016-11-24] MEDS: BENZTROPINE MESYLATE 1 MG TABLET (FP) PO SCH (21:17)
[2016-11-24] MEDS: diphenhydrAMINE HCL 50 MG CAPSULE PO SCH (21:17)
[2016-11-25] MEDS: PRENATAL VITAMINS W/ FOLIC ACID TABLET (FP) PO SCH (09:58)
[2016-11-25] MEDS: IBUPROFEN 400 MG TABLET (FP) PO PRN ×2 (09:58→22:25)
[2016-11-25] MEDS: THIAMINE HCL 100 MG TABLET (FP) PO SCH (22:24)
[2016-11-25] MEDS: diphenhydrAMINE HCL 50 MG CAPSULE PO SCH (22:24)
[2016-11-25] MEDS: risperiDONE 3 MG TABLET PO SCH (22:25)
[2016-11-25] MEDS: BENZTROPINE MESYLATE 1 MG TABLET (FP) PO SCH (22:25)
[2016-11-26] MEDS: IBUPROFEN 400 MG TABLET (FP) PO PRN ×2 (09:08→16:35)
[2016-11-26] MEDS: PRENATAL VITAMINS W/ FOLIC ACID TABLET (FP) PO SCH (09:09)
[2016-11-26] MEDS: THIAMINE HCL 100 MG TABLET (FP) PO SCH (21:17)
[2016-11-26] MEDS: risperiDONE 3 MG TABLET PO SCH (21:17)
[2016-11-26] MEDS: BENZTROPINE MESYLATE 1 MG TABLET (FP) PO SCH (21:17)
[2016-11-26] MEDS: diphenhydrAMINE HCL 50 MG CAPSULE PO SCH (21:18)
[2016-11-27] MEDS: IBUPROFEN 400 MG TABLET (FP) PO PRN ×2 (06:12→15:25)
[2016-11-27] MEDS: PRENATAL VITAMINS W/ FOLIC ACID TABLET (FP) PO SCH (10:01)
[2016-11-27] MEDS: THIAMINE HCL 100 MG TABLET (FP) PO SCH (21:10)
[2016-11-27] MEDS: risperiDONE 3 MG TABLET PO SCH (21:10)
[2016-11-27] MEDS: diphenhydrAMINE HCL 50 MG CAPSULE PO SCH (21:10)
[2016-11-27] MEDS: BENZTROPINE MESYLATE 1 MG TABLET (FP) PO SCH (21:10)
[2016-11-28] MEDS: PRENATAL VITAMINS W/ FOLIC ACID TABLET (FP) PO SCH (09:56)
[2016-11-28] MEDS: IBUPROFEN 400 MG TABLET (FP) PO PRN (09:57)
[2016-11-28] MEDS: ACETAMINOPHEN 325 MG TABLET (FP) PO PRN ×2 (15:01→20:14)
[2016-11-28] MEDS: BENZTROPINE MESYLATE 1 MG TABLET (FP) PO SCH (21:13)
[2016-11-28] MEDS: diphenhydrAMINE HCL 50 MG CAPSULE PO SCH (21:13)
[2016-11-28] MEDS: risperiDONE 3 MG TABLET PO SCH (21:14)
[2016-11-28] MEDS: THIAMINE HCL 100 MG TABLET (FP) PO SCH (21:14)
[2016-11-29] MEDS: ACETAMINOPHEN 325 MG TABLET (FP) PO PRN ×3 (07:53→20:03)
[2016-11-29] MEDS: PRENATAL VITAMINS W/ FOLIC ACID TABLET (FP) PO SCH (09:49)
[2016-11-29] MEDS: THIAMINE HCL 100 MG TABLET (FP) PO SCH (21:14)
[2016-11-29] MEDS: risperiDONE 3 MG TABLET PO SCH (21:14)
[2016-11-29] MEDS: BENZTROPINE MESYLATE 1 MG TABLET (FP) PO SCH (21:14)
[2016-11-29] MEDS: diphenhydrAMINE HCL 50 MG CAPSULE PO SCH (21:14)
[2016-11-30] MEDS: ACETAMINOPHEN 325 MG TABLET (FP) PO PRN ×3 (06:51→21:17)
[2016-11-30] MEDS: PRENATAL VITAMINS W/ FOLIC ACID TABLET (FP) PO SCH (10:22)
[2016-11-30] MEDS: diphenhydrAMINE HCL 50 MG CAPSULE PO SCH (21:16)
[2016-11-30] MEDS: THIAMINE HCL 100 MG TABLET (FP) PO SCH (21:16)
[2016-11-30] MEDS: BENZTROPINE MESYLATE 1 MG TABLET (FP) PO SCH (21:16)
[2016-11-30] MEDS: risperiDONE 3 MG TABLET PO SCH (21:18)
[2016-12-01] MEDS: ACETAMINOPHEN 325 MG TABLET (FP) PO PRN ×2 (06:28→16:02)
[2016-12-01] MEDS: PRENATAL VITAMINS W/ FOLIC ACID TABLET (FP) PO SCH (10:01)
[2016-12-01] MEDS: THIAMINE HCL 100 MG TABLET (FP) PO SCH (21:21)
[2016-12-01] MEDS: diphenhydrAMINE HCL 50 MG CAPSULE PO SCH (21:21)
[2016-12-01] MEDS: BENZTROPINE MESYLATE 1 MG TABLET (FP) PO SCH (21:21)
[2016-12-01] MEDS: risperiDONE 3 MG TABLET PO SCH (21:21)
[2016-12-02] MEDS: PRENATAL VITAMINS W/ FOLIC ACID TABLET (FP) PO SCH (10:05)
[2016-12-02] MEDS: ACETAMINOPHEN 325 MG TABLET (FP) PO PRN (14:58)
[2016-12-02] MEDS: THIAMINE HCL 100 MG TABLET (FP) PO SCH (21:15)
[2016-12-02] MEDS: BENZTROPINE MESYLATE 1 MG TABLET (FP) PO SCH (21:15)
[2016-12-02] MEDS: diphenhydrAMINE HCL 50 MG CAPSULE PO SCH (21:15)
[2016-12-02] MEDS: IBUPROFEN 400 MG TABLET (FP) PO PRN (21:16)
[2016-12-02] MEDS: risperiDONE 3 MG TABLET PO SCH (21:16)
[2016-12-03] MEDS: IBUPROFEN 400 MG TABLET (FP) PO PRN ×2 (09:08→15:41)
[2016-12-03] MEDS: PRENATAL VITAMINS W/ FOLIC ACID TABLET (FP) PO SCH (10:01)
[2016-12-03] MEDS: LIDOCAINE 5% TOPICAL PATCH TP SCH (13:00)
[2016-12-03] MEDS ORDERED: PT OWN MED DRAWER 7, Y5N ONE (15:40)
[2016-12-03] MEDS: diphenhydrAMINE HCL 50 MG CAPSULE PO SCH (21:23)
[2016-12-03] MEDS: risperiDONE 3 MG TABLET PO SCH (21:24)
[2016-12-03] MEDS: BENZTROPINE MESYLATE 1 MG TABLET (FP) PO SCH (21:24)
[2016-12-03] MEDS: THIAMINE HCL 100 MG TABLET (FP) PO SCH (21:24)
[2016-12-04] MEDS: PRENATAL VITAMINS W/ FOLIC ACID TABLET (FP) PO SCH (10:17)
[2016-12-04] MEDS: risperiDONE 1 MG TABLET (FP) PO SCH (10:17)
[2016-12-04] MEDS: LIDOCAINE 5% TOPICAL PATCH TP SCH (10:18)
[2016-12-04] MEDS: risperiDONE 2 MG TABLET PO SCH ×2 (21:20→23:16)
[2016-12-04] MEDS: BENZTROPINE MESYLATE 1 MG TABLET (FP) PO SCH (21:22)
[2016-12-04] MEDS: diphenhydrAMINE HCL 50 MG CAPSULE PO SCH (21:22)
[2016-12-04] MEDS: THIAMINE HCL 100 MG TABLET (FP) PO SCH (21:22)
[2016-12-04] MEDS: risperiDONE 3 MG TABLET PO SCH ×2 (21:23→23:17)
[2016-12-05] MEDS ORDERED: PT OWN MED DRAWER 7, Y5N ONE (08:32)
[2016-12-05] MEDS: LIDOCAINE 5% TOPICAL PATCH TP SCH (10:12)
[2016-12-05] MEDS: PRENATAL VITAMINS W/ FOLIC ACID TABLET (FP) PO SCH (10:12)
[2016-12-05] MEDS: risperiDONE 1 MG TABLET (FP) PO SCH (10:12)
[2016-12-05] MEDS: diphenhydrAMINE HCL 50 MG CAPSULE PO SCH (21:17)
[2016-12-05] MEDS: THIAMINE HCL 100 MG TABLET (FP) PO SCH (21:17)
[2016-12-05] MEDS: BENZTROPINE MESYLATE 1 MG TABLET (FP) PO SCH (21:17)
[2016-12-05] MEDS: risperiDONE 2 MG TABLET PO SCH (21:17)
[2016-12-05] MEDS: IBUPROFEN 400 MG TABLET (FP) PO PRN (21:18)
[2016-12-05] MEDS: risperiDONE 3 MG TABLET PO SCH (21:20)
[2016-12-06] MEDS: IBUPROFEN 400 MG TABLET (FP) PO PRN (06:32)
[2016-12-06] MEDS: risperiDONE 1 MG TABLET (FP) PO SCH (09:16)
[2016-12-06] MEDS: PRENATAL VITAMINS W/ FOLIC ACID TABLET (FP) PO SCH (09:16)
[2016-12-06] MEDS: LIDOCAINE 5% TOPICAL PATCH TP SCH (09:16)
[2016-12-06] MEDS: THIAMINE HCL 100 MG TABLET (FP) PO SCH (21:11)
[2016-12-06] MEDS: diphenhydrAMINE HCL 50 MG CAPSULE PO SCH (21:11)
[2016-12-06] MEDS: BENZTROPINE MESYLATE 1 MG TABLET (FP) PO SCH (21:12)
[2016-12-06] MEDS: risperiDONE 2 MG TABLET PO SCH (21:12)
[2016-12-07] MEDS: LIDOCAINE 5% TOPICAL PATCH TP SCH (09:20)
[2016-12-07] MEDS: risperiDONE 1 MG TABLET (FP) PO SCH (09:21)
[2016-12-07] MEDS: PRENATAL VITAMINS W/ FOLIC ACID TABLET (FP) PO SCH (09:21)
[2016-12-07] MEDS: risperiDONE 2 MG TABLET PO SCH (21:08)
[2016-12-07] MEDS: THIAMINE HCL 100 MG TABLET (FP) PO SCH (21:08)
[2016-12-07] MEDS: BENZTROPINE MESYLATE 1 MG TABLET (FP) PO SCH (21:08)
[2016-12-07] MEDS: diphenhydrAMINE HCL 50 MG CAPSULE PO SCH (21:08)
[2016-12-07] MEDS: IBUPROFEN 400 MG TABLET (FP) PO PRN (21:10)
[2016-12-08] MEDS: PRENATAL VITAMINS W/ FOLIC ACID TABLET (FP) PO SCH (09:49)
[2016-12-08] MEDS: LIDOCAINE 5% TOPICAL PATCH TP SCH (09:49)
[2016-12-08] MEDS: risperiDONE 1 MG TABLET (FP) PO SCH (09:49)
[2016-12-08] MEDS: ACETAMINOPHEN 325 MG TABLET (FP) PO PRN ×2 (13:43→17:46)
[2016-12-08] MEDS: THIAMINE HCL 100 MG TABLET (FP) PO SCH (21:58)
[2016-12-08] MEDS: diphenhydrAMINE HCL 50 MG CAPSULE PO SCH (21:59)
[2016-12-08] MEDS: BENZTROPINE MESYLATE 1 MG TABLET (FP) PO SCH (21:59)
[2016-12-08] MEDS: risperiDONE 2 MG TABLET PO SCH (21:59)
[2016-12-09] MEDS: IBUPROFEN 400 MG TABLET (FP) PO PRN (06:49)
[2016-12-09] MEDS: PRENATAL VITAMINS W/ FOLIC ACID TABLET (FP) PO SCH (09:48)
[2016-12-09] MEDS: LIDOCAINE 5% TOPICAL PATCH TP SCH (09:48)
[2016-12-09] MEDS: risperiDONE 1 MG TABLET (FP) PO SCH (09:48)
[2016-12-09] MEDS: ACETAMINOPHEN 325 MG TABLET (FP) PO PRN (09:52)
[2016-12-09] MEDS: diphenhydrAMINE HCL 50 MG CAPSULE PO SCH (21:14)
[2016-12-09] MEDS: BENZTROPINE MESYLATE 1 MG TABLET (FP) PO SCH (21:14)
[2016-12-09] MEDS: THIAMINE HCL 100 MG TABLET (FP) PO SCH (21:14)
[2016-12-09] MEDS: risperiDONE 2 MG TABLET PO SCH (21:15)
[2016-12-10] MEDS: PRENATAL VITAMINS W/ FOLIC ACID TABLET (FP) PO SCH (09:38)
[2016-12-10] MEDS: LIDOCAINE 5% TOPICAL PATCH TP SCH (09:40)
[2016-12-10] MEDS: risperiDONE 1 MG TABLET (FP) PO SCH (09:40)
[2016-12-10] MEDS: diphenhydrAMINE HCL 50 MG CAPSULE PO SCH (21:08)
[2016-12-10] MEDS: THIAMINE HCL 100 MG TABLET (FP) PO SCH (21:08)
[2016-12-10] MEDS: risperiDONE 2 MG TABLET PO SCH (21:08)
[2016-12-10] MEDS: BENZTROPINE MESYLATE 1 MG TABLET (FP) PO SCH (21:08)
[2016-12-10] MEDS: IBUPROFEN 400 MG TABLET (FP) PO PRN (21:09)
[2016-12-11] MEDS: LIDOCAINE 5% TOPICAL PATCH TP SCH (10:03)
[2016-12-11] MEDS: PRENATAL VITAMINS W/ FOLIC ACID TABLET (FP) PO SCH (10:03)
[2016-12-11] MEDS: risperiDONE 1 MG TABLET (FP) PO SCH (10:03)
[2016-12-11] MEDS: BENZTROPINE MESYLATE 1 MG TABLET (FP) PO SCH (21:13)
[2016-12-11] MEDS: diphenhydrAMINE HCL 50 MG CAPSULE PO SCH (21:13)
[2016-12-11] MEDS: THIAMINE HCL 100 MG TABLET (FP) PO SCH (21:13)
[2016-12-11] MEDS: risperiDONE 2 MG TABLET PO SCH (21:13)
[2016-12-12] MEDS: IBUPROFEN 400 MG TABLET (FP) PO PRN (08:00)
[2016-12-12] MEDS: risperiDONE 1 MG TABLET (FP) PO SCH (10:02)
[2016-12-12] MEDS: LIDOCAINE 5% TOPICAL PATCH TP SCH (10:02)
[2016-12-12] MEDS: PRENATAL VITAMINS W/ FOLIC ACID TABLET (FP) PO SCH (10:02)
[2016-12-12] MEDS: ACETAMINOPHEN 325 MG TABLET (FP) PO PRN (13:51)
[2016-12-12] MEDS: diphenhydrAMINE HCL 50 MG CAPSULE PO SCH (21:23)
[2016-12-12] MEDS: THIAMINE HCL 100 MG TABLET (FP) PO SCH (21:24)
[2016-12-12] MEDS: BENZTROPINE MESYLATE 1 MG TABLET (FP) PO SCH (21:24)
[2016-12-12] MEDS: risperiDONE 2 MG TABLET PO SCH (21:24)
[2016-12-13] MEDS: ACETAMINOPHEN 325 MG TABLET (FP) PO PRN ×2 (07:00→21:17)
[2016-12-13] MEDS: PRENATAL VITAMINS W/ FOLIC ACID TABLET (FP) PO SCH (09:44)
[2016-12-13] MEDS: LIDOCAINE 5% TOPICAL PATCH TP SCH (09:44)
[2016-12-13] MEDS: risperiDONE 1 MG TABLET (FP) PO SCH (09:44)
[2016-12-13] MEDS: IBUPROFEN 400 MG TABLET (FP) PO PRN (12:49)
[2016-12-13] MEDS: BENZTROPINE MESYLATE 1 MG TABLET (FP) PO SCH (21:17)
[2016-12-13] MEDS: THIAMINE HCL 100 MG TABLET (FP) PO SCH (21:17)
[2016-12-13] MEDS: diphenhydrAMINE HCL 50 MG CAPSULE PO SCH (21:18)
[2016-12-13] MEDS: risperiDONE 2 MG TABLET PO SCH (21:18)
[2016-12-14] MEDS: ACETAMINOPHEN 325 MG TABLET (FP) PO PRN (06:13)
[2016-12-14] MEDS: PRENATAL VITAMINS W/ FOLIC ACID TABLET (FP) PO SCH (09:37)
[2016-12-14] MEDS: LIDOCAINE 5% TOPICAL PATCH TP SCH (09:37)
[2016-12-14] MEDS: risperiDONE 1 MG TABLET (FP) PO SCH (09:37)
[2016-12-14] MEDS: risperiDONE 2 MG TABLET PO SCH (21:44)
[2016-12-14] MEDS: BENZTROPINE MESYLATE 1 MG TABLET (FP) PO SCH (21:44)
[2016-12-14] MEDS: THIAMINE HCL 100 MG TABLET (FP) PO SCH (21:44)
[2016-12-14] MEDS: diphenhydrAMINE HCL 50 MG CAPSULE PO SCH (21:44)
[2016-12-15] MEDS: ACETAMINOPHEN 325 MG TABLET (FP) PO PRN (06:21)
[2016-12-15 06:53] VITALS: BP 117/78; PULSE 82; TEMP 98
[2016-12-15] MEDS: PRENATAL VITAMINS W/ FOLIC ACID TABLET (FP) PO SCH (09:48)
[2016-12-15] MEDS: risperiDONE 1 MG TABLET (FP) PO SCH (09:49)
[2016-12-15] MEDS: LIDOCAINE 5% TOPICAL PATCH TP SCH (09:49)
[2016-12-15] MEDS: IBUPROFEN 400 MG TABLET (FP) PO PRN (15:34)
--- NOTE | 2016-12-15 16:55 | PN ---
[id number] 82 16-18 117/78 Date of Session: 12/15/16 Chief Complaint:: Discharge visit HPI: Patient addressed Alcohol and Cocaine dependence comorbid with Schizoaffective disorder,Mild mental retardation. ROS: H/O Bilateral cancer. Current Medications: Active Medications Generic Name Dose Route Start Last Admin Trade Name Freq PRN Reason Stop Dose Admin Acetaminophen 650 mg 11/14/16 13:43 12/15/16 06:21 Tylenol - PO 650 mg Q4H PRN Administration FEVER OR PAIN Al Hydroxide/Mg Hydroxide 30 ml 11/14/16 13:43 11/16/16 14:47 Mylanta Oral Suspension - PO 30 ml Q6H PRN Administration DYSPEPSIA Benztropine Mesylate 1 mg 11/14/16 22:00 12/14/16 21:44 Cogentin - PO 1 mg HS HOANG Administration Diphenhydramine HCl 100 mg 11/21/16 22:00 12/14/16 21:44 Benadryl - PO 100 mg HS HOANG Administration Eucalyptus/Menthol/Phenol/Sorbitol 1 each 11/14/16 13:43 Cepastat Lozenge - MM Q4H PRN SORE THROAT Guaifenesin 10 ml 11/14/16 13:43 Robitussin Dm - PO Q6H PRN COUGH Ibuprofen 400 mg 11/14/16 13:43 12/15/16 15:34 Motrin - PO 400 mg Q6H PRN Administration PAIN Lidocaine 1 patch 12/03/16 12:00 12/15/16 09:49 Lidoderm Patch - TP 1 patch DAILY HOANG Administration Loperamide HCl 4 mg 11/14/16 13:43 12/03/16 09:08 Imodium - PO 4 mg Q6H PRN Administration DIARRHEA Magnesium Hydroxide 30 ml 11/14/16 13:43 12/14/16 14:33 Milk Of Magnesia - PO 30 ml DAILY PRN Administration CONSTIPATION Multivit/Folic Acid/Iron 1 tab 11/15/16 10:00 12/15/16 09:48 Vitamins (Sjr) - PO 1 tab DAILY HOANG Administration Pseudoephedrine/Triprolidine 1 combo 11/14/16 13:43 Actifed - PO TID PRN NASAL CONGESTION Risperidone 1 mg 12/04/16 10:00 12/15/16 09:49 Risperdal - PO 1 mg DAILY HOANG Administration Risperidone 2 mg 12/04/16 22:00 12/14/16 21:44 Risperdal - PO 2 mg HS HOANG Administration Thiamine HCl 100 mg 11/14/16 22:00 12/14/16 21:44 Vitamin B1 - PO 100 mg HS HOANG Administration Current Side Effect: No Lab tests ordered: No Lab tests reviewed: Yes Provider note:: Patient will complete this program tomorrow 12/16/16.She has met her treatment goals and will continue to address her issues on outpatient basis at [facility] in [facility].Patient will continue current medications:Risperidone 1 mg po am and 2 mg po hs and Cogentin 1 mg po daily.Scripts for 30 days supply provided. PAtient identifies areas of difficulties and ways ,support she can utilize to maintain recovery. Patient is stable for discharge tomorrow 12/16/16. Total face to face time:: 30 Mental Status Exam - Mental Status Exam Alert and Oriented to: Time, Place, Person Cognitive Function: Grossly Intact Patient Appearance: Unkempt Mood: Euthymic Affect: Mood Congruent Patient Behavior: Cooperative Speech Pattern: Clear Voice Loudness: Normal Thought Process: Goal Oriented Thought Disorder: Not Present Hallucinations: Denies Suicidal Ideation: Denies Homicidal Ideation: Denies Insight/Judgement: Fair Sleep: Fair Appetite: Good Muscle strength/Tone: Normal Gait/Station: Normal Psychiatric Treatment Plan - Problem List (1) Cocaine dependence Qualifiers: (3) Nicotine dependence Qualifiers:
[2016-12-15] MEDS: THIAMINE HCL 100 MG TABLET (FP) PO SCH (21:16)
[2016-12-15] MEDS: risperiDONE 2 MG TABLET PO SCH (21:16)
[2016-12-15] MEDS: BENZTROPINE MESYLATE 1 MG TABLET (FP) PO SCH (21:16)
[2016-12-15] MEDS: diphenhydrAMINE HCL 50 MG CAPSULE PO SCH (21:16)
== END 2016-12-16 08:27 | disposition home or self-care (01) | DRG 772 ==
LOC: YASAS 11:04 → Y3E 11:05
PROVIDERS: ADMIT Psychiatry & Neurology Psychiatry; ATTEND Psychiatry & Neurology Psychiatry
PROC: HZ42ZZZ Group Counseling for Substance Abuse Treatment, Cognitive-Behavioral (ICD-10-PCS; principal; 2016-12-16)
DX: F14.20 Cocaine dependence, uncomplicated (principal); F17.210 Nicotine dependence, cigarettes, uncomplicated; F25.9 Schizoaffective disorder, unspecified; F70 Mild intellectual disabilities; Z85.3 Personal history of malignant neoplasm of breast
CPT/HCPCS: J2794

== ENCOUNTER 2024-04-21 17:53 | Inpatient (IN) | payer OTHER ==
[2024-04-21 19:28] VITALS: BMI 19.9
[2024-04-21] MEDS ORDERED: P-EPHED 60MG/TRIPROLIDI 2.5MG TABLET PO PRN (20:00)
[2024-04-21] MEDS ORDERED: MAG HYDROX/AL HYDROX/SIMETH 30 ML UNIT-DOSE CUP PO PRN (20:00)
[2024-04-21] MEDS ORDERED: BENZONATATE 200 MG CAPSULE PO PRN (20:00)
[2024-04-21] MEDS ORDERED: POLYETHYLENE GLYCOL (HEALTHYLAX) 3350 17 GM PACKET PO PRN (20:00)
[2024-04-21] MEDS ORDERED: ONDANSETRON *ODT* 4 MG TABLET SL PRN (20:00)
[2024-04-21] MEDS ORDERED: BISMUTH SUBSALICYLATE 524 MG/30 ML PO PRN (20:00)
[2024-04-21] MEDS ORDERED: IBUPROFEN 600 MG TABLET (FP) PO PRN (20:00)
[2024-04-21] MEDS ORDERED: DICYCLOMINE HCL 10 MG CAPSULE PO PRN (20:00)
[2024-04-21] MEDS ORDERED: LOPERAMIDE HCL 2 MG CAPSULE PO PRN (20:00)
[2024-04-21] MEDS ORDERED: MAGNESIUM HYDROX 2400MG/30ML ORAL SUSPENSION 30 ML CUP PO PRN (20:00)
[2024-04-21] MEDS ORDERED: IBUPROFEN 400 MG TABLET (FP) PO PRN (20:00)
[2024-04-21] MEDS ORDERED: NICOTINE POLACRILEX 2 MG GUM BUC PRN (20:00)
[2024-04-21] MEDS ORDERED: NALOXONE (NARCAN) HCL 4 MG/0.1 ML SPRAY NS PRN (20:00)
[2024-04-21] MEDS ORDERED: ACETAMINOPHEN 325 MG TABLET (FP) PO PRN (20:00)
[2024-04-21] MEDS ORDERED: BENZOCAINE/MENTHOL (CHLORASEPTIC ) LOZENGE MM PRN (20:00)
[2024-04-21] MEDS ORDERED: NALOXONE HCL 0.4 MG/ML VIAL IM PRN (20:00)
[2024-04-21] MEDS ORDERED: NICOTINE POLACRILEX 2 MG LOZENGE BC PRN (20:00)
[2024-04-21] MEDS ORDERED: guaiFENesin 600 MG TABLET.ER (FP) PO PRN (20:00)
[2024-04-21] MEDS: THIAMINE 100 MG TABLET PO SCH (23:05)
[2024-04-21] MEDS: MELATONIN 5 MG TABLETS PO SCH (23:05)
[2024-04-21] MEDS ORDERED: SENNOSIDES 8.6MG TABLET (FP) PO PRN (23:17)
[2024-04-22] MEDS: hydrOXYzine PAMOATE 25 MG CAPSULE (FP) PO PRN (05:28)
[2024-04-22] MEDS: CALCIUM (OYSTER SHELL) 500 MG TABLET (FP) PO SCH ×2 (08:04→09:10)
[2024-04-22] MEDS: PANTOPRAZOLE 40 MG TABLET PO SCH (09:10)
[2024-04-22] MEDS: PRENATAL VITAMINS W/ FOLIC ACID TABLET (FP) PO SCH (09:11)
[2024-04-22 10:08] VITALS: BP 119/73; PULSE 73; RESP 16; TEMP 97.7
[2024-04-22] MEDS: risperiDONE 1 MG TABLET PO SCH (10:33)
[2024-04-22] MEDS: TIOTROPIUM BROMIDE 2.5 MCG (SPIRIVA) RESPIMAT INHALER IH SCH (10:34)
[2024-04-22] MEDS: ACETAMINOPHEN 500 MG TABLET (FP) PO SCH (10:37)
[2024-04-22] MEDS: PNEUMOC 20-VAL CONJ-DIP CRM/PF 0.5 ML SYRINGE IM ONE (11:37)
[2024-04-22 11:51] LABS: HEMATOCRIT 26.1 % (32.4-45.2); MCH 35.6 pg (25.7-33.7); MCHC 34.4 g/dl (32.0-36.0); MEAN CELL VOLUME 103.4 fl (80-96); PLATELET COUNT 363 10^3/uL (134-434); RBC 2.53 M/mm3 (3.60-5.2); RDW 13.3 % (11.6-15.6); WHITE BLOOD COUNT 2.9 K/mm3 (4.0-10.0)
[2024-04-22 11:52] LABS: POTASSIUM 3.4 mmol/L (3.5-5.1)
[2024-04-22 12:01] LABS: ALBUMIN 2.5 g/dl (3.4-5.0); BLOOD UREA NITROGEN 11.9 mg/dL (7-18); CALCIUM 8.5 mg/dL (8.5-10.1)
[2024-04-22 12:04] LABS: CREATININE 0.6 mg/dL (0.55-1.3)
[2024-04-22 12:05] LABS: BILIRUBIN,TOTAL 0.8 mg/dL (0.2-1); TOT PROT 4.4 g/dl (6.4-8.2)
[2024-04-22] MEDS ORDERED: IMATINIB MESYLATE 100 MG TABLET PO SCH (17:00)
[2024-04-22] MEDS ORDERED: traZODone HCL 100 MG TABLET (FP) PO SCH (22:00)
[2024-04-22] MEDS ORDERED: BENZTROPINE MESYLATE 1 MG TABLET PO SCH (22:00)
[2024-04-22] MEDS ORDERED: HALOPERIDOL 5 MG TABLET PO SCH (22:00)
[2024-04-25] MEDS ORDERED: IMATINIB MESYLATE 400 MG TABLET PO SCH (17:00)
[2024-04-25] MEDS ORDERED: PATIENT'S OWN MEDICATION (NON-FORMULARY) (Netarsudil Mesylate [Rhopressa] 2.5 ML Drops) OU SCH (22:00)
== END 2024-04-22 14:05 | disposition home or self-care (01) | DRG 775 ==
LOC: YASAS 17:53 → Y6N 20:13
PROVIDERS: ADMIT Allergy & Immunology; ATTEND Surgery
PROC: HZ2ZZZZ Detoxification Services for Substance Abuse Treatment (ICD-10-PCS; principal; 2024-04-21)
DX: F10.230 Alcohol dependence with withdrawal, uncomplicated (principal); F17.210 Nicotine dependence, cigarettes, uncomplicated; F25.9 Schizoaffective disorder, unspecified; F70 Mild intellectual disabilities; C91.90 Lymphoid leukemia, unspecified not having achieved remission; H40.9 Unspecified glaucoma; J45.909 Unspecified asthma, uncomplicated; R26.89 Other abnormalities of gait and mobility; Z99.89 Dependence on other enabling machines and devices; Z85.3 Personal history of malignant neoplasm of breast
CPT/HCPCS: 36415; 80053; 80305; 80307; 81025; 85027; 86780; 93005; 93010